=== PATIENT | female | born 1995 | race Caucasian/White ===

== ENCOUNTER 2021-05-15 06:57 | Day surgery (SDC) | payer SELFPAY ==
[2021-05-15] MEDS ORDERED: hydrALAZINE 20 MG/ML VIAL SLOW IVP PRN (08:27)
[2021-05-15 08:59] VITALS: BMI 31.2
[2021-05-15 08:59] LABS: Bilirubin Neg (Negative); Blood, Urine 50 (Negative); Clarity Clear (Clear); Glucose, Urine (Dipstick) Normal (Negative); Ketone, Urine Negative (Negative); Leukocyte Negative (Negative); Nitrite Negative (Negative); Protein, Urine (Dipstick) 15 mg/dl (Neg-Trace); Specific Gravity, Urine 1.015 (1.002-1.036); Urobilinogen Normal mg/dL (Less than 2)
[2021-05-15 09:02] LABS: Urine Culture Reflex No No
[2021-05-15 09:08] LABS: Bacteria/HPF Rare-Few HPF (None Seen); RBC/HPF 0-3 HPF (0-3); Squamous Epithelial 0-3 HPF (0-3); WBC/HPF 0-3 HPF (0-3)
== END 2021-05-15 16:30 | disposition home or self-care (01) ==
LOC: CSHLD/OP 06:57
PROVIDERS: ATTEND Obstetrics & Gynecology
DX: O99.891 Other specified diseases and conditions complicating pregnancy (principal); R10.32 Left lower quadrant pain; O09.33 Supervision of pregnancy with insufficient antenatal care, third trimester; O41.03X0 Oligohydramnios, third trimester, not applicable or unspecified; Z3A.37 37 weeks gestation of pregnancy; Z86.16 Personal history of COVID-19; Z88.0 Allergy status to penicillin; Z91.040 Latex allergy status
CPT/HCPCS: 76770; 76815; 81001; 99282

== ENCOUNTER 2021-05-17 08:10 | Observation (INO) | payer SELFPAY ==
[2021-05-17 08:40] VITALS: BMI 30.4
[2021-05-17] MEDS ORDERED: hydrALAZINE 20 MG/ML VIAL SLOW IVP PRN (09:30)
[2021-05-17] MEDS ORDERED: Ondansetron PF 4 MG/2 ML Vial IVP PRN (09:31)
[2021-05-17] MEDS ORDERED: Ondansetron ODT 8 MG TAB SL PRN (09:31)
[2021-05-17] MEDS ORDERED: Lactated Ringer's 1,000 ML IV SCH ×2 (09:45)
[2021-05-17] MEDS ORDERED: Promethazine HCl 25 MG/ML VIAL IM SCH (10:00)
[2021-05-17] MEDS ORDERED: Meperidine HCl/PF 25 MG/ML VIAL IM SCH (10:15)
[2021-05-17] MEDS ORDERED: Tamsulosin HCl 0.4 MG CAP PO SCH (11:45)
[2021-05-17 11:54] LABS: Bilirubin Neg (Negative); Blood, Urine Negative (Negative); Clarity Clear (Clear); Glucose, Urine (Dipstick) Normal (Negative); Ketone, Urine Negative (Negative); Leukocyte Negative (Negative); Nitrite Negative (Negative); Protein, Urine (Dipstick) Negative (Neg-Trace); Specific Gravity, Urine 1.005 (1.002-1.036); Urobilinogen Normal mg/dL (Less than 2)
[2021-05-17 11:55] LABS: Urine Culture Reflex No No
[2021-05-17 12:08] LABS: RBC/HPF None Seen HPF (0-3); Squamous Epithelial 0-3 HPF (0-3); Transitional Epithelial 0-3 HPF (None Seen); WBC/HPF 0-3 HPF (0-3)
[2021-05-17 12:09] LABS: Bacteria/HPF Rare-Few HPF (None Seen)
[2021-05-17] MEDS ORDERED: HYDROcodone/Acetaminophen 5/325 mg Tablet PO PRN (12:55)
[2021-05-17] MEDS ORDERED: Morphine 4 MG/ML VIAL ONE (12:57)
[2021-05-17] MEDS ORDERED: Morphine 4 MG/ML VIAL SLOW IVP PRN (13:00)
[2021-05-17] MEDS ORDERED: Promethazine HCl 25 MG/ML VIAL IM PRN (14:30)
[2021-05-17] MEDS: HYDROcodone/Acetaminophen 5/325 mg Tablet PO PRN ×2 (14:41→19:38)
[2021-05-17] MEDS: Lactated Ringer's 1,000 ML IV SCH ×3 (14:46→20:28)
[2021-05-17 14:58] LABS: #Basophils 0.1 10x3/uL (0.0-0.2); #Neutrophils 12.2 10x3/uL (1.5-8.4); %Basophils 0.3 % (0.0-2.0); %Eosinophils 0.3 % (0.0-6.0); %Monocytes 6.8 % (0.0-10.0); %Neutrophils 81.1 % (40.0-75.0); Hemoglobin 10.9 g/dL (12.0-15.5); Mean Corpuscular HGB CONC 32.2 g/dL (32.0-36.0); Mean Corpuscular Hemoglobin 27.1 pg (27.0-33.0); Mean Corpuscular Volume 84.3 fl (81.6-98.3); Mean Platelet Volume 9.4 fl (7.4-10.4); Platelet Count 269 10x3/uL (150-450); RBC Distribution Width 15.7 % (11.5-14.5); Red Blood Cell (RBC) Count 4.02 10x6/uL (3.90-5.03); White Blood Cell (WBC) Count 15.1 10x3/uL (3.5-10.5)
[2021-05-17 15:17] LABS: Anion Gap 14 mmol/L (10-20); BUN (Urea Nitrogen) 8 mg/dL (7.0-18.7); Calc. Creatinine Clearance 149 mL/min (70-130); Calcium 8.8 mg/dL (7.8-10.44); Carbon Dioxide 19 mmol/L (22-29); Chloride 109 mmol/L (98-107); Glucose 72 mg/dL (70-105); Potassium 3.8 mmol/L (3.5-5.1); Sodium 138 mmol/L (136-145)
[2021-05-17 21:12] LABS: SARS-CoV-2 NAA Rapid Test DETECTED (NotDetected)
[2021-05-18] MEDS: Lactated Ringer's 1,000 ML IV SCH ×3 (00:45→08:19)
[2021-05-18] MEDS ORDERED: Tamsulosin HCl 0.4 MG CAP PO SCH ×2 (09:00→11:00)
[2021-05-18] MEDS ORDERED: Lactated Ringer's 1,000 ML IV SCH (11:25)
[2021-05-18] MEDS ORDERED: Acetaminophen/Codeine 30-300mg Tablet PO PRN ×2 (11:32)
[2021-05-18 11:40] VITALS: BP 129/76; TEMP 98.4
== END 2021-05-18 17:15 | disposition home health service (06) ==
LOC: CSHLD/OP 08:10 → INTOOBSV 14:26 → CSHANTE 14:26
PROVIDERS: ADMIT Student in an Organized Health Care Education/Training Program; ATTEND Student in an Organized Health Care Education/Training Program
DX: O98.513 Other viral diseases complicating pregnancy, third trimester (principal); U07.1 COVID-19; O99.891 Other specified diseases and conditions complicating pregnancy; N13.30 Unspecified hydronephrosis; O36.5930 Maternal care for other known or suspected poor fetal growth, third trimester, not applicable or unspecified; O09.33 Supervision of pregnancy with insufficient antenatal care, third trimester; Z3A.37 37 weeks gestation of pregnancy; Z88.0 Allergy status to penicillin; Z91.040 Latex allergy status
CPT/HCPCS: 36415; 76770; 76815; 80048; 81001; 85025; 86850; 86900; 86901; 87081; 96372; 96374; G0378; J2175; J2270; J2550; J7120; U0002

== ENCOUNTER 2021-05-25 19:11 | Inpatient (IN) | payer MEDICAID, SELFPAY ==
[2021-05-25] MEDS ORDERED: hydrALAZINE 20 MG/ML VIAL SLOW IVP PRN ×2 (20:30)
[2021-05-25] MEDS ORDERED: Ondansetron PF 4 MG/2 ML Vial IVP PRN (20:30)
[2021-05-25] MEDS: Lactated Ringer's 1,000 ML IV SCH (20:38)
[2021-05-25 20:54] VITALS: BMI 32.7
[2021-05-25] MEDS ORDERED: Misoprostol 200 MCG TAB PR PRN (21:15)
[2021-05-25] MEDS ORDERED: Lidocaine 1% (PF) 30 ML VIAL SC PRN (21:15)
[2021-05-25] MEDS ORDERED: Methylergonovine 0.2 MG/ML VIAL IM PRN (21:15)
[2021-05-25] MEDS ORDERED: Carboprost 250 MCG/ML AMP IM PRN (21:15)
[2021-05-25] MEDS: Misoprostol 100 MCG TAB VAG SCH (21:38)
[2021-05-25 21:59] LABS: Hemoglobin 11.6 g/dL (12.0-15.5); Mean Corpuscular HGB CONC 32.9 g/dL (32.0-36.0); Mean Corpuscular Hemoglobin 27.2 pg (27.0-33.0); Mean Corpuscular Volume 82.7 fl (81.6-98.3); Mean Platelet Volume 10.2 fl (7.4-10.4); Platelet Count 291 10x3/uL (150-450); RBC Distribution Width 15.4 % (11.5-14.5); Red Blood Cell (RBC) Count 4.27 10x6/uL (3.90-5.03); White Blood Cell (WBC) Count 10.9 10x3/uL (3.5-10.5)
[2021-05-25 22:31] LABS: Hep B Surf Ag Non-Reactive S/CO (NonReactive); Syphilis Antibody Nonreactive (Nonreactive); Syphilis Antibody Index 0.05 S/CO (<1.00 Non-Reactive)
[2021-05-25 22:34] LABS: HBSAg Index 0.21 S/CO (0-0.99)
[2021-05-26] MEDS ORDERED: Fentanyl 100 MCG/2 ML VIAL SLOW IVP SCH ×2 (03:00→07:15)
[2021-05-26] MEDS: Lactated Ringer's 1,000 ML IV SCH (04:38)
[2021-05-26] MEDS ORDERED: NS w/ Oxytocin 30 units 500 ML IV SCH (13:45)
[2021-05-26] MEDS: NS w/ Oxytocin 30 units 500 ML IV SCH (13:53)
[2021-05-26] MEDS ORDERED: Fentanyl 2 mcg/Bup 0.1% Cadd 100 ML ONE (17:46)
[2021-05-26] MEDS ORDERED: Hydrocerin (Eucerin) Cream 120 gm Jar TOP PRN (19:44)
[2021-05-26] MEDS ORDERED: Ondansetron PF 4 MG/2 ML Vial IVP PRN (19:44)
[2021-05-26] MEDS ORDERED: diphenhydrAMINE 50 MG/ML VIAL IVP PRN (19:44)
[2021-05-26] MEDS ORDERED: Naloxone HCl 0.4 mg/ml Vial IVP PRN ×2 (19:44)
[2021-05-26] MEDS ORDERED: ePHEDrine Sulfate 50 MG/10 ML VIAL SLOW IVP PRN (19:44)
[2021-05-26] MEDS ORDERED: Promethazine HCl 25 MG/ML VIAL IM PRN (19:44)
[2021-05-26] MEDS ORDERED: Acetaminophen 325 MG TAB PO PRN (19:44)
[2021-05-26] MEDS ORDERED: Lactated Ringer's 500 ML IV PRN (19:44)
[2021-05-26] MEDS ORDERED: Fentanyl 2 mcg/Bupivacaine 0.1% Cassette 100 ML EPIDURAL SCH (19:45)
[2021-05-26] MEDS ORDERED: Communication Order-Pharmacy FS SCH (19:45)
[2021-05-26] MEDS ORDERED: Terbutaline Sulfate 1 MG/ML VIAL ONE (20:19)
[2021-05-27] MEDS ORDERED: ceFAZolin 2 GM/Dextrose 50 ML IVPB ONE (03:04)
[2021-05-27] MEDS ORDERED: Azithromycin 500 MG VIAL ONE (03:04)
[2021-05-27] MEDS ORDERED: Fentanyl 100 MCG/2 ML VIAL ONE (03:08)
[2021-05-27] MEDS ORDERED: ePHEDrine Sulfate 50 MG/10 ML VIAL ONE (03:08)
[2021-05-27] MEDS ORDERED: PROPOFOL 20 ML ONE (03:09)
[2021-05-27] MEDS ORDERED: Boostrix 0.5 ML (Tdap) VIAL IM ONE (04:13)
[2021-05-27] MEDS ORDERED: hydrALAZINE 20 MG/ML VIAL SLOW IVP PRN (04:13)
[2021-05-27] MEDS ORDERED: Lanolin Ointment 7 GM TUBE TOP PRN (04:13)
[2021-05-27] MEDS ORDERED: Ondansetron PF 4 MG/2 ML Vial IVP PRN (04:13)
[2021-05-27] MEDS ORDERED: NS w/ Oxytocin 30 units 500 ML ONE (04:21)
[2021-05-27] MEDS: NS w/ Oxytocin 30 units 500 ML IV SCH (04:22)
[2021-05-27] MEDS: Ibuprofen 800 MG TAB PO SCH ×3 (04:48→21:42)
[2021-05-27] MEDS: Misoprostol 100 MCG TAB VAG SCH ×8 (07:06→18:46)
[2021-05-27] MEDS ORDERED: Acetaminophen 500 MG TAB PO PRN (07:52)
[2021-05-27] MEDS ORDERED: Acetaminophen 500 MG TAB PO SCH (11:15)
[2021-05-27] MEDS: Acetaminophen 325 MG TAB PO SCH ×2 (16:03→21:41)
[2021-05-27] MEDS: Docusate 100 MG CAP PO PRN (21:41)
[2021-05-27] MEDS ORDERED: HYDROcodone/Acetaminophen 5/325 mg Tablet PO SCH (22:45)
[2021-05-28] MEDS: Misoprostol 100 MCG TAB VAG SCH ×6 (00:47→16:36)
[2021-05-28] MEDS: Acetaminophen 325 MG TAB PO SCH ×4 (05:55→14:54)
[2021-05-28] MEDS: Ibuprofen 800 MG TAB PO SCH ×2 (05:56→14:52)
[2021-05-28 07:56] VITALS: BP 125/81; TEMP 98.1
[2021-05-28] MEDS: Docusate 100 MG CAP PO PRN (09:14)
== END 2021-05-28 17:55 | disposition home or self-care (01) | DRG 807 ==
LOC: CSHLD 19:11 → CSHPP 05-27 05:50
PROVIDERS: ADMIT Family Medicine; ATTEND Family Medicine
PROC: 10E0XZZ Delivery of Products of Conception, External Approach (ICD-10-PCS; principal; 2021-05-27)
PROC: 3E0P7VZ Introduction of Hormone into Female Reproductive, Via Natural or Artificial Opening (ICD-10-PCS; 2021-05-27)
PROC: 3E033VJ Introduction of Other Hormone into Peripheral Vein, Percutaneous Approach (ICD-10-PCS; 2021-05-27)
PROC: 10907ZC Drainage of Amniotic Fluid, Therapeutic from Products of Conception, Via Natural or Artificial Opening (ICD-10-PCS; 2021-05-27)
DX: O36.5930 Maternal care for other known or suspected poor fetal growth, third trimester, not applicable or unspecified (principal); Z37.0 Single live birth; Z3A.38 38 weeks gestation of pregnancy; Z88.0 Allergy status to penicillin; Z91.040 Latex allergy status; Z86.16 Personal history of COVID-19; O76 Abnormality in fetal heart rate and rhythm complicating labor and delivery
CPT/HCPCS: 36415; 85027; 86780; 86850; 86900; 86901; 87340; 88307; J2590; J2704; J3010; J7120